=== PATIENT | female | born 1970 | race Caucasian/White ===

== ENCOUNTER → 2023-04-22 | Outpatient (CLI) | payer OTHER, SELFPAY ==
[2023-04-22 22:15] LABS: Estradiol 26.7 pg/mL; Ferritin 113 ng/mL (8-252); Iron 75 ug/dL (50-170); Iron Binding Capacity,Total 289 ug/dL (250-450)
[2023-04-24 04:07] LABS: Thyroid Peroxidase AB 13 IU/mL (0-34)
[2023-04-24 11:09] LABS: Thyroid Stim Hormone (TSH) 1.78 uIU/mL (0.358-3.74)
== END | disposition home or self-care (01) ==
PROVIDERS: Visit Provider Nurse Practitioner
DX: E03.9 Hypothyroidism, unspecified (principal); R63.5 Abnormal weight gain; E55.9 Vitamin D deficiency, unspecified; R53.83 Other fatigue; E06.3 Autoimmune thyroiditis; D64.9 Anemia, unspecified
CPT/HCPCS: 82533; 82670; 82728; 83540; 83550; 84443; 86376